=== PATIENT | male | born 1985 | race Caucasian/White ===

== ENCOUNTER 2025-10-13 11:51 | Emergency (ER) | payer SELFPAY ==
[2025-10-13 12:02] VITALS: BP 155/98
[2025-10-13 12:37] VITALS: BMI 25.8
[2025-10-13 12:42] LABS: Hematocrit 42.3 % (39.0-52.0); Hemoglobin 14.6 g/dL (13.0-18.0); Mean Corp Hgb Conc. 34.5 g/dL (33.0-37.0); Mean Corpuscular Volume 83.8 fL (80.0-94.0); Nucleated Red Blood Cells % 0 % (-); Platelet Count 196 10^3/uL (130-400); Red Cell Dist. Width 13.0 % (11.5-14.5)
[2025-10-13] MEDS: TORADOL 15 MG IV (12:43)
[2025-10-13 13:04] LABS: ALT (SGPT) 16 U/L (0-50); AST (SGOT) 18 U/L (17-59); Albumin 4.0 g/dl (3.5-5.0); Alkaline Phosphatase 61 U/L (38-126); Blood Urea Nitrogen 6 mg/dl (9-20); Calcium 8.9 mg/dl (8.4-10.2); Carbon Dioxide 30 mmol/L (22-30); Chloride 101 mmol/L (98-107); Estimated Creatinine Clearance 115 ml/min; Glucose 106 mg/dl (70-99); Potassium 3.8 mmol/L (3.5-5.1); Sodium 134 mmol/L (135-145); Total Protein 6.8 g/dl (6.3-8.2); eGFR > 60.00
--- NOTE | 2025-10-13 13:36 | ED.GENMED ---
History of Present Illness
<CLARK Douglas - Last Filed: 10/13/25 13:51>
General
Chief Complaint: DVT/Possible Blood Clot
Source: patient
Exam Limitations: none
Time Seen by Provider: 10/13/25 12:19
Nursing documentation reviewed up to this point in time: agreed with
History of Present Illness
History of Present Illness:
Patient is a 31-year-old male presents to the ER for evaluation. Patient was working on his car over the weekend starting Monday evening and was kneeling a lot. On Monday the following day he noticed some redness to his left anterior knee
however now has increasing redness and spreading to the whole lower leg. He was seen in urgent care and sent here to rule out DVT. He has no prior history of DVT in the past. He denies any associated fever or chills. He does not feel ill.
Phy Exam
<CLARK Douglas - Last Filed: 10/13/25 13:51>
General Physical Exam
General Presentation: no apparent distress
General age: appears stated age
General Skin: warm and dry
General Habitus: normal
General Mental: alert
General Hydration: appears well hydrated
Neurological Exam
Neurological Exam: alert and oriented x3
Musculoskeletal Exam
Musculoskeletal Exam: other (Left lower extremity with strong pulses patient with scattered redness to the lower leg mild redness to the anterior knee good flexion extension compartments are soft )
Skin Exam
Skin Exam: normal color and warm/dry
Psychiatric Exam
Psychiatric Exam: normal mood/affect
Course
<CLARK Douglas - Last Filed: 10/13/25 13:51>
Orders/Labs/Results
Orders:
Orders
10/13/25 12:24
IV Insert/Care/Rem.- Treatment PRN
Periph Venous Lwr Ext Left US [US Periph Venous LOWER Ext LT] Urgent
Comment:
Reason For Exam: swelling/redness to left leg
10/13/25 12:30
Complete Blood Count/With Diff Urgent
Comprehensive Metabolic Panel Urgent
10/13/25 12:41
Ketorolac [Toradol] 15 mg IV NOW STA
10/13/25 12:42
Ketorolac [Toradol] 15 mg .ROUTE .STK-MED ONE
10/13/25 13:48
CeFAZolin 1 GRAM [Ancef] 1 gram in 5 ml IV NOW
Abnormal Lab Results
10/13/25
12:30
Absolute Neuts (auto) 7.0 H 10^3/uL
(1.4-6.5)
Absolute Lymphs (auto) 1.1 L 10^3/uL
(1.2-3.4)
Neutrophils % 79.3 H %
(42.2-75.2)
Lymphocytes % 12.1 L %
(20.5-51.1)
Sodium 134 L mmol/L
(135-145)
BUN 6 L mg/dl
(9-20)
Glucose 106 H mg/dl
(70-99)
10/13/25 12:30
10/13/25 12:30
Vital Signs
Initial and Last Documented VS:
Initial Vital Signs
Temp Pulse Resp BP Pulse Ox
99.1 F 99 15 155/98 100
10/13/25 12:02 10/13/25 12:02 10/13/25 12:02 10/13/25 12:02 10/13/25 12:02
Last Documented Vital Signs
Temp Pulse Resp BP Pulse Ox
99.1 F 88 18 152/88 99
10/13/25 12:02 10/13/25 14:11 10/13/25 14:11 10/13/25 14:11 10/13/25 14:11
Security Guards Dispatcher consulted with Physician
Security Guards Dispatcher consulted with physician?: Yes
Name of Physician Consulted: awa
<Jovany Ferguson MD - Last Filed: 10/15/25 02:34>
Orders/Labs/Results
Orders:
Orders
10/13/25 12:24
IV Insert/Care/Rem.- Treatment PRN
Periph Venous Lwr Ext Left US [US Periph Venous LOWER Ext LT] Urgent
Comment:
Reason For Exam: swelling/redness to left leg
10/13/25 12:30
Complete Blood Count/With Diff Urgent
Comprehensive Metabolic Panel Urgent
10/13/25 12:41
Ketorolac [Toradol] 15 mg IV NOW STA
10/13/25 12:42
Ketorolac [Toradol] 15 mg .ROUTE .STK-MED ONE
10/13/25 13:48
CeFAZolin 1 GRAM [Ancef] 1 gram in 5 ml IV NOW
Abnormal Lab Results
10/13/25
12:30
Absolute Neuts (auto) 7.0 H 10^3/uL
(1.4-6.5)
Absolute Lymphs (auto) 1.1 L 10^3/uL
(1.2-3.4)
Neutrophils % 79.3 H %
(42.2-75.2)
Lymphocytes % 12.1 L %
(20.5-51.1)
Sodium 134 L mmol/L
(135-145)
BUN 6 L mg/dl
(9-20)
Glucose 106 H mg/dl
(70-99)
10/13/25 12:30
10/13/25 12:30
Vital Signs
Initial and Last Documented VS:
Initial Vital Signs
Temp Pulse Resp BP Pulse Ox
99.1 F 99 15 155/98 100
10/13/25 12:02 10/13/25 12:02 10/13/25 12:02 10/13/25 12:02 10/13/25 12:02
Last Documented Vital Signs
Temp Pulse Resp BP Pulse Ox
99.1 F 88 18 152/88 99
10/13/25 12:02 10/13/25 14:11 10/13/25 14:11 10/13/25 14:11 10/13/25 14:11
<CLARK Douglas - Last Filed: 10/13/25 13:51>
MDM/Problems Addressed
Differential Diagnosis Includes:
Not limited to prepatellar cellulitis, DVT, cellulitis
MDM/Problems Addressed:
Symptoms are consistent with cellulitis. Patient started out with redness to the knee from kneeling on the knee however now has scattered erythema to the left lower leg. There is swelling however compartments are soft. Ultrasound negative for
DVT. He denies any fever or chills he is afebrile no acute distress patient evaluated by ED physician will DC with Keflex. Patient was given a dose of Ancef. Discussed close outpatient follow-up with family practice doctor or clinic.
<CLRAK Douglas - Last Filed: 10/13/25 13:51>
*Radiology
Radiology exam reviewed: radiology read reviewed
*Pulse Oximetry
Patient hypoxic: no
*Critical Care Note
Total Time (30-74mins, 75-104mins- exclusive of procedures): Not Applicable
<Jovany Ferguson MD - Last Filed: 10/15/25 02:34>
*Pulse Oximetry
SaO2: 100
Oxygen Mode of Delivery: Room air
ED Attending Note
<Jovany Ferguson MD - Last Filed: 10/15/25 02:34>
ED Attending Note
Patient seen and examined by attending physician: Yes
ED Attending Note:
Patient without any significant past medical history, presents to ED secondary to 3-day history of worsening left lower leg redness, pain, and swelling. Patient states that his symptoms started after he was kneeling down and working on his car over
the weekend. Patient also has number of lesions on his legs, which patient is attributing to picking at his 'pimples'. Denies fever or chills. Denies loss of sensation or weakness. Denies open wound. Denies previous history of similar symptoms.
Denies recent travel or surgery.
Physical Exam
General: no apparent distress, not acutely ill. afebrile
Head: nc/at. eomi
Neck: supple. no meningeal signs. normal range of motion
Neuro: alert and oriented x 3. no focal neurological deficits
Skin: multiple superficial skin lesions/scabs noted over bilateral legs
Psychiatric: well kept. interactive and cooperative
Extremities: LLE: Erythema noted over anterior surface of lower leg starting proximal to knee, down to ankle, without open drainage. calf nontender to palpation.
History and exam consistent with likely superficial leg cellulitis, likely triggered by patient picking at his pimple, exposing himself to possible infection. Ultrasound lower extremity negative for acute DVT. Otherwise, patient is afebrile,
hemodynamically stable, and nontoxic-appearing. Exam inconsistent with compartment syndrome at this time. Patient will be started empirically on antibiotics, with recommendation to follow-up PCP for reevaluation, or return to ED with worsening
symptoms. Leg elevation recommended at home upon discharge.
-
Portions of this chart may have been created with voice recognition software.� Occasional wrong word or��sound alike� substitutions may have occurred due to the inherent limitations of voice recognition software.
Discharge Plan
Departure
Patient Disposition: Home (Routine Discharge)
Date of Disposition: 10/13/25
Time of Disposition: 13:41
Patient with high blood pressure during this ER visit?: Yes
Condition: Fair
Covid-19: Not Applicable
Discharge Problem:
Cellulitis
Instructions: Cellulitis (Skin Infection), Adult (DC), BLOOD PRESSURE
Prescriptions:
New
cephalexin 500 mg capsule
500 mg PO Q6H Qty: 28 0RF
Referrals:
[facility] [Outside]
Activity Restrictions/Additional Instructions:
As discussed antibiotic every 6 hours for the next week. Closely follow-up with your family doctor or family practice clinic for reevaluation. Return if any worsening of symptoms include increased redness swelling pain fever chills.
Interventions
Interventions:
*Risk Screen - Suicide Last Done: 10/13/25 12:05
*General Assessment Last Done: 10/13/25 12:05
*Neglect/Abuse Screening Last Done: 10/13/25 12:05
*Nursing Disposition Last Done: 10/13/25 14:12
ED- Cardiac Assessment Last Done: 10/13/25 12:37
ED- Pulmonary Assessment Last Done: 10/13/25 12:37
ED-Peripheral Vascular Assessment Last Done: 10/13/25 12:37
ED-Skin Assessment Last Done: 10/13/25 12:37
Discharge Date and Time
Discharge Date/Time: 10/13/25 14:12
Print Language: OCCITAN
[2025-10-13] MEDS: ANCEF 5 IV (13:57)
[2025-10-13 14:11] VITALS: BP 152/88
== END 2025-10-13 14:12 | disposition home or self-care (01) ==
LOC: EMR 11:51
PROVIDERS: Nurse Practitioner; EMERGENCY PHYSICIAN Emergency Medicine; FAMILY PHYSICIAN Family Medicine
DX: L03.116 Cellulitis of left lower limb (principal); R22.42 Localized swelling, mass and lump, left lower limb
CPT/HCPCS: 96374; 96375; 99284; 80053; 85025; 93971